=== PATIENT | male | born 1960 | race Caucasian/White ===

== ENCOUNTER → 2017-04-20 | Outpatient (CLI) | payer OTHER ==
[~2017-04-20] MED LIST: AMLO5 PO; ASPI81CH PO; CARV25; DIGO.125; FURO20; LISHYD1012 PO; LISI10; METO50 PO; OMEP20ER PO; POTCHL10ER; ZOLP5 PO
== END | disposition home or self-care (01) ==
LOC: LAB EV 14:53
DX: N30.01 Acute cystitis with hematuria (principal)
CPT/HCPCS: 87077; 87086; 87186